=== PATIENT | male | born 1955 | race Two or more races ===

== ENCOUNTER 2018-01-14 10:02 | Emergency (ER) | payer MEDICAID, OTHER ==
[~2018-01-14] VITALS: Ht 185.4 cm; Wt 102.0 kg
[~2018-01-14 10:02] MED LIST: CARV3.122 PO
[2018-01-14 10:14] VITALS: BP 132/83
[2018-01-14] MEDS ORDERED: BACDS PO (11:08)
== END 2018-01-14 11:13 | disposition home or self-care (01) ==
LOC: ER 10:03
DX: S31.104A Unspecified open wound of abdominal wall, left lower quadrant without penetration into peritoneal cavity, initial encounter (principal); L03.311 Cellulitis of abdominal wall; I25.10 Atherosclerotic heart disease of native coronary artery without angina pectoris; I10 Essential (primary) hypertension; B18.2 Chronic viral hepatitis C; F10.10 Alcohol abuse, uncomplicated; F12.90 Cannabis use, unspecified, uncomplicated; Z86.14 Personal history of Methicillin resistant Staphylococcus aureus infection; Z59.0 Homelessness; X58.XXXA Exposure to other specified factors, initial encounter; Y93.89 Activity, other specified; Y92.89 Other specified places as the place of occurrence of the external cause; Y99.8 Other external cause status
CPT/HCPCS: 99283

== ENCOUNTER 2018-04-20 16:37 | Inpatient (IN) | payer MEDICAID, OTHER | END 2018-04-24 14:59 | disposition home or self-care (01) | LOC: SUR 3N 04-21 00:07 → ER 16:37 → ED HOLD 23:19 | DX: A41.9 Sepsis, unspecified organism (principal); J18.1 Lobar pneumonia, unspecified organism; Z59.0 Homelessness; E87.6 Hypokalemia; H54.8 Legal blindness, as defined in USA ==

== ENCOUNTER 2018-07-02 19:45 | Emergency (ER) | payer MEDICAID, OTHER ==
[~2018-07-02] VITALS: Ht 185.4 cm; Wt 81.8 kg
--- NOTE | 2018-07-02 19:55 | NUR ---
patient placed in c-collar c/o c-spine tenderness
[2018-07-02] MEDS ORDERED: HYDROcodone/acetaminophen 5mg/325mg tablet PO ONE (21:10)
[2018-07-02] MEDS ORDERED: ketorolac trometh inj. 60 MG/2 ML VIAL IM ONE (21:10)
[2018-07-02 22:25] VITALS: BP 121/69
[2018-07-02] MEDS ORDERED: MELO7.5T12 PO (23:07)
--- NOTE | 2018-07-02 23:46 | NUR ---
patient states " [facility] and [facility]." patient was cabbed on [facility] bill to [facility]
== END 2018-07-02 23:57 | disposition home or self-care (01) ==
LOC: ER 19:45
DX: M50.322 Other cervical disc degeneration at C5-C6 level (principal); I25.10 Atherosclerotic heart disease of native coronary artery without angina pectoris; I10 Essential (primary) hypertension; F17.200 Nicotine dependence, unspecified, uncomplicated; F12.90 Cannabis use, unspecified, uncomplicated; Z59.0 Homelessness; Z98.890 Other specified postprocedural states
CPT/HCPCS: 72125; 96372; 99284; J1885

== ENCOUNTER 2018-07-03 00:49 | Emergency (ER) | payer MEDICAID ==
[~2018-07-03] VITALS: Ht 185.4 cm; Wt 81.8 kg
[~2018-07-03 00:49] MED LIST changes: +MELO7.5T12 PO
[2018-07-03 00:57] VITALS: BP 117/70
== END 2018-07-03 01:38 | disposition home or self-care (01) ==
LOC: ER 00:51
DX: M54.2 Cervicalgia (principal); H54.8 Legal blindness, as defined in USA; I25.10 Atherosclerotic heart disease of native coronary artery without angina pectoris; I10 Essential (primary) hypertension; G89.29 Other chronic pain; F12.90 Cannabis use, unspecified, uncomplicated; Z86.19 Personal history of other infectious and parasitic diseases; Z86.14 Personal history of Methicillin resistant Staphylococcus aureus infection; Z98.890 Other specified postprocedural states; Z59.0 Homelessness; Z79.899 Other long term (current) drug therapy
CPT/HCPCS: 99283

== ENCOUNTER 2018-07-15 02:31 | Emergency (ER) | payer MEDICAID ==
[~2018-07-15] VITALS: Ht 185.4 cm; Wt 78.0 kg
[2018-07-15] MEDS ORDERED: ketorolac trometh inj. 60 MG/2 ML VIAL IM ONE (03:40)
[2018-07-15 03:58] VITALS: BP 123/82
== END 2018-07-15 04:00 | disposition home or self-care (01) ==
LOC: ER 02:32
DX: M54.5 Low back pain (principal); F12.90 Cannabis use, unspecified, uncomplicated; I25.10 Atherosclerotic heart disease of native coronary artery without angina pectoris; I10 Essential (primary) hypertension; G89.29 Other chronic pain; Z86.14 Personal history of Methicillin resistant Staphylococcus aureus infection; Z98.890 Other specified postprocedural states; Z79.899 Other long term (current) drug therapy; W16.42XA Fall into unspecified water causing other injury, initial encounter; Y93.89 Activity, other specified; Y92.89 Other specified places as the place of occurrence of the external cause; Y99.8 Other external cause status
CPT/HCPCS: 72100; 96372; 99284; J1885

== ENCOUNTER 2018-08-04 08:59 | Inpatient (IN) | payer MEDICAID ==
[~2018-08-04] VITALS: Ht 182.9 cm; Wt 90.9 kg
[2018-08-04] MEDS ORDERED: CefTRIAXone 2gm/D5W 50ml 50 ML IV ONE (09:45)
--- NOTE | 2018-08-04 09:59 | NUR ---
pt refuses to keep monitors on
[2018-08-04 10:03] LABS: BASOPHILS # (AUTO) 0.1 X10'3 (0-0.2); BASOPHILS % (AUTO) 0.4 % (0-1); EOSINOPHILS # (AUTO) 0.2 X10'3 (0-0.9); LYMPHOCYTES % (AUTO) 3.9 % (21-51)
[2018-08-04 10:04] LABS: HEMATOCRIT 44.8 % (42.0-52.0); HEMOGLOBIN 15.1 g/dl (14.0-17.9); LYMPHOCYTES # (AUTO) 0.7 X10'3 (1.1-4.8); MEAN CORPUSCULAR HEMOGLOBIN 32.6 PG (27.0-31.0); MEAN CORPUSCULAR HGB CONC 33.7 g/dL (33.0-36.5); MEAN PLATELET VOLUME 8.8 FL (7.4-10.4); MONOCYTES # (AUTO) 1.1 X10'3 (0-0.9); MONOCYTES % (AUTO) 5.9 % (2-12); NEUTROPHILS # (AUTO) 16.8 X10'3 (1.8-7.7); NEUTROPHILS % (AUTO) 88.8 % (42-75); PLATELET COUNT 239 X10'3 (140-440); RED BLOOD COUNT 4.62 X10'6 (4.70-6.10); RED CELL DISTRIBUTION WIDTH 13.6 % (11.5-14.5)
[2018-08-04 10:20] LABS: ALANINE AMINOTRANSFERASE 26 U/L (12-78); ALBUMIN 3.8 G/DL (3.4-5.0); ALBUMIN/GLOBULIN RATIO 1.1 (1.1-1.5); ALKALINE PHOSPHATASE 67 IU/L (46-116); ANION GAP 7 (8-16); ASPARTATE AMINO TRANSFERASE 39 U/L (10-37); BLOOD UREA NITROGEN 17 MG/DL (7-18); CALCIUM 8.4 MG/DL (8.5-10.1); CHLORIDE 102 MMOL/L (99-107); CREATININE 0.68 MG/DL (0.60-1.10); GLUCOSE 78 MG/DL (70-104); POTASSIUM 3.4 MMOL/L (3.5-5.1); SODIUM 136 MMOL/L (135-145); TOTAL CARBON DIOXIDE 27.5 MMOL/L (24-32); TOTAL PROTEIN 7.2 G/DL (6.4-8.2); eGFR > 90 ML/MIN
--- NOTE | 2018-08-04 11:04 | NUR ---
PT TAKES NO HOME RX
[2018-08-04] MEDS ORDERED: potassium CL 10mEq/100ml bag 100 ML IV PRN (11:15)
[2018-08-04] MEDS ORDERED: HYDROcodone/acetaminophen 5mg/325mg tablet PO PRN (11:15)
[2018-08-04] MEDS ORDERED: acetaminophen 325mg tablet PO PRN (11:15)
[2018-08-04] MEDS ORDERED: potassium Cl 20 mEq SR tablet PO PRN ×2 (11:15)
[2018-08-04] MEDS ORDERED: magnesium 4gm in 100ml NS 100 ML IV PRN (11:15)
[2018-08-04] MEDS ORDERED: HYDROcodone/acetaminophen 10/325mg tab PO PRN (11:15)
[2018-08-04] MEDS ORDERED: morphine 2 MG/ML inj. syringe IV PRN ×2 (11:15)
[2018-08-04] MEDS ORDERED: mag hydrox/Alum hydrox/simeth 30ml oral suspension PO PRN (11:15)
[2018-08-04] MEDS ORDERED: potassium Cl 40MEQ/NS 500ml 500 ML IV PRN (11:15)
[2018-08-04] MEDS ORDERED: magnesium 2GM in 50ml NS 50 ML IV PRN (11:15)
[2018-08-04] MEDS ORDERED: ondansetron/PF 4mg/2ml inj IV PRN (11:15)
[2018-08-04] MEDS ORDERED: magnesium Cl slow-release 64mg tablet PO PRN (11:15)
[2018-08-04] MEDS ORDERED: magnesium hydroxide 30ml (MOM) UD suspension PO PRN (11:15)
--- NOTE | 2018-08-04 11:46 | NUR ---
gave pt sandwich and apple juice and urinal
[2018-08-04] MEDS ORDERED: NO HOME MEDS (12:13)
[2018-08-04 14:28] VITALS: BP 143/81
[2018-08-04 18:00] VITALS: BP 130/73
[2018-08-04] MEDS: lactobacillus rhamnosus 10,000 MMU CELLS/CAPSULE PO SCH (19:57)
[2018-08-04] MEDS: famotidine 20mg tablet PO SCH (19:57)
[2018-08-04 22:00] VITALS: BP 141/72
--- NOTE | 2018-08-05 06:31 | NUR ---
Report given to anali Mondragon.
[2018-08-05 06:37] LABS: BASOPHILS # (AUTO) 0.1 X10'3 (0-0.2); BASOPHILS % (AUTO) 0.4 % (0-1); EOSINOPHILS # (AUTO) 0.1 X10'3 (0-0.9); EOSINOPHILS % (AUTO) 0.6 % (0-6); HEMATOCRIT 43.6 % (42.0-52.0); HEMOGLOBIN 14.7 g/dl (14.0-17.9); LYMPHOCYTES # (AUTO) 1.1 X10'3 (1.1-4.8); LYMPHOCYTES % (AUTO) 7.7 % (21-51); MEAN CORPUSCULAR HEMOGLOBIN 32.4 PG (27.0-31.0); MEAN CORPUSCULAR HGB CONC 33.7 g/dL (33.0-36.5); MEAN CORPUSCULAR VOLUME 96.1 FL (78-98); MEAN PLATELET VOLUME 8.8 FL (7.4-10.4); MONOCYTES % (AUTO) 7.4 % (2-12); NEUTROPHILS # (AUTO) 11.5 X10'3 (1.8-7.7); NEUTROPHILS % (AUTO) 83.9 % (42-75); PLATELET COUNT 196 X10'3 (140-440); RED BLOOD COUNT 4.54 X10'6 (4.70-6.10); RED CELL DISTRIBUTION WIDTH 13.6 % (11.5-14.5); WHITE BLOOD COUNT 13.7 X10'3 (4.5-11.0)
[2018-08-05 06:46] LABS: ANION GAP 6 (8-16); BLOOD UREA NITROGEN 10 MG/DL (7-18); BUN/CREATININE RATIO 17.9 (5.4-32.0); CALCIUM 8.6 MG/DL (8.5-10.1); CHLORIDE 104 MMOL/L (99-107); CREATININE 0.56 MG/DL (0.60-1.10); GLUCOSE 94 MG/DL (70-104); MAGNESIUM 1.9 MG/DL (1.5-2.4); POTASSIUM 3.7 MMOL/L (3.5-5.1); SODIUM 136 MMOL/L (135-145); TOTAL CARBON DIOXIDE 26.3 MMOL/L (24-32); eGFR > 90 ML/MIN
--- NOTE | 2018-08-05 06:59 | NUR ---
Patient in room ORTHO 4013. I have received report from CAROLYNE Johns and had the opportunity to ask questions and assume patient care.
[2018-08-05] MEDS ORDERED: furosemide 20 MG/2 ML vial IV SCH (08:00)
[2018-08-05] MEDS: K and/or MAG REPLACEMENT MC SCH (08:00)
[2018-08-05] MEDS: lactobacillus rhamnosus 10,000 MMU CELLS/CAPSULE PO SCH ×2 (09:41→20:21)
[2018-08-05] MEDS: ibuprofen 200mg tablet PO SCH ×3 (09:42→17:51)
[2018-08-05] MEDS: famotidine 20mg tablet PO SCH ×2 (09:42→20:21)
[2018-08-05] MEDS: aspirin 81mg tablet.DR PO SCH (09:42)
[2018-08-05] MEDS: enoxaparin 40mg/0.4ml syringe SQ SCH (09:43)
[2018-08-05] MEDS: CefTRIAXone 2gm/D5W 50ml 50 ML IV SCH (09:56)
[2018-08-05 18:00] VITALS: BP 131/87
[2018-08-05 22:00] VITALS: BP 126/76
[2018-08-06 06:00] VITALS: BP 132/83
[2018-08-06 06:01] LABS: BASOPHILS # (AUTO) 0.1 X10'3 (0-0.2); BASOPHILS % (AUTO) 0.6 % (0-1); EOSINOPHILS # (AUTO) 0.4 X10'3 (0-0.9); EOSINOPHILS % (AUTO) 4.2 % (0-6); HEMATOCRIT 43.3 % (42.0-52.0); HEMOGLOBIN 14.4 g/dl (14.0-17.9); LYMPHOCYTES # (AUTO) 1.4 X10'3 (1.1-4.8); LYMPHOCYTES % (AUTO) 14.7 % (21-51); MEAN CORPUSCULAR HEMOGLOBIN 32.3 PG (27.0-31.0); MEAN CORPUSCULAR HGB CONC 33.3 g/dL (33.0-36.5); MEAN PLATELET VOLUME 9.1 FL (7.4-10.4); MONOCYTES # (AUTO) 1.1 X10'3 (0-0.9); MONOCYTES % (AUTO) 11.6 % (2-12); NEUTROPHILS # (AUTO) 6.5 X10'3 (1.8-7.7); NEUTROPHILS % (AUTO) 68.9 % (42-75); PLATELET COUNT 202 X10'3 (140-440); RED BLOOD COUNT 4.46 X10'6 (4.70-6.10); RED CELL DISTRIBUTION WIDTH 13.8 % (11.5-14.5); WHITE BLOOD COUNT 9.4 X10'3 (4.5-11.0)
[2018-08-06 06:29] LABS: ALBUMIN 2.9 G/DL (3.4-5.0); ANION GAP 9 (8-16); BLOOD UREA NITROGEN 18 MG/DL (7-18); CALCIUM 8.3 MG/DL (8.5-10.1); CHLORIDE 102 MMOL/L (99-107); CREATININE 0.58 MG/DL (0.60-1.10); GLUCOSE 86 MG/DL (70-104); MAGNESIUM 1.8 MG/DL (1.5-2.4); POTASSIUM 3.7 MMOL/L (3.5-5.1); SODIUM 137 MMOL/L (135-145); TOTAL CARBON DIOXIDE 25.8 MMOL/L (24-32); eGFR > 90 ML/MIN
--- NOTE | 2018-08-06 06:43 | NUR ---
report given to anali Xavier.
--- NOTE | 2018-08-06 06:45 | NUR ---
Patient in room ORTHO 4013. I have received report from CAROLYNE Johns and had the opportunity to ask questions and assume patient care.
[2018-08-06] MEDS: K and/or MAG REPLACEMENT MC SCH (08:00)
[2018-08-06] MEDS: aspirin 81mg tablet.DR PO SCH (09:12)
[2018-08-06] MEDS: famotidine 20mg tablet PO SCH ×2 (09:12→19:36)
[2018-08-06] MEDS: enoxaparin 40mg/0.4ml syringe SQ SCH (09:12)
[2018-08-06] MEDS: lactobacillus rhamnosus 10,000 MMU CELLS/CAPSULE PO SCH ×2 (09:12→19:36)
[2018-08-06] MEDS: CefTRIAXone 2gm/D5W 50ml 50 ML IV SCH (09:13)
[2018-08-06] MEDS: ibuprofen 200mg tablet PO SCH ×3 (09:14→18:44)
[2018-08-06 10:00] VITALS: BP 125/80
--- NOTE | 2018-08-06 18:39 | NUR ---
Patient in room ORTHO 4013. I have received report from CAROLYNE WILEY and had the opportunity to ask questions and assume patient care.
--- NOTE | 2018-08-06 18:41 | NUR ---
Problems reprioritized. Patient report given, questions answered & plan of care reviewed with Radha Almeida RN.
--- NOTE | 2018-08-06 19:16 | NUR ---
PT ARRIVED ON THE FLOOR , AMBULATORY AND LEGALLY BLIND, NOT IN DISTRESS.
[2018-08-06 20:00] VITALS: BP 127/66
[2018-08-07] VITALS: BP 140/85
[2018-08-07 04:56] LABS: BASOPHILS # (AUTO) 0.1 X10'3 (0-0.2); BASOPHILS % (AUTO) 0.7 % (0-1); EOSINOPHILS # (AUTO) 0.6 X10'3 (0-0.9); EOSINOPHILS % (AUTO) 7.4 % (0-6); HEMATOCRIT 45.1 % (42.0-52.0); HEMOGLOBIN 15.5 g/dl (14.0-17.9); LYMPHOCYTES # (AUTO) 2.2 X10'3 (1.1-4.8); LYMPHOCYTES % (AUTO) 28.2 % (21-51); MEAN CORPUSCULAR HEMOGLOBIN 33.1 PG (27.0-31.0); MEAN CORPUSCULAR HGB CONC 34.5 g/dL (33.0-36.5); MEAN PLATELET VOLUME 9.1 FL (7.4-10.4); MONOCYTES # (AUTO) 1.1 X10'3 (0-0.9); MONOCYTES % (AUTO) 13.8 % (2-12); NEUTROPHILS # (AUTO) 3.8 X10'3 (1.8-7.7); NEUTROPHILS % (AUTO) 49.9 % (42-75); PLATELET COUNT 229 X10'3 (140-440); RED CELL DISTRIBUTION WIDTH 13.3 % (11.5-14.5); WHITE BLOOD COUNT 7.7 X10'3 (4.5-11.0)
[2018-08-07 05:09] LABS: ANION GAP 5 (8-16); BLOOD UREA NITROGEN 21 MG/DL (7-18); BUN/CREATININE RATIO 27.3 (5.4-32.0); CHLORIDE 105 MMOL/L (99-107); CREATININE 0.77 MG/DL (0.60-1.10); GLUCOSE 95 MG/DL (70-104); POTASSIUM 4.1 MMOL/L (3.5-5.1); SODIUM 140 MMOL/L (135-145); TOTAL CARBON DIOXIDE 30.3 MMOL/L (24-32); eGFR > 90 ML/MIN
--- NOTE | 2018-08-07 06:30 | NUR ---
Patient in room ALLISON 349. I have received report from Radha Dalal RN and had the opportunity to ask questions and assume patient care.
--- NOTE | 2018-08-07 06:35 | NUR ---
Problems reprioritized. Patient report given, questions answered & plan of care reviewed with CAROLYNE Bone. Addendum: 08/07/18 at 0636 by Meghan Foreman RN Amended: Links added.
[2018-08-07 08:00] VITALS: BP 139/80
[2018-08-07] MEDS: K and/or MAG REPLACEMENT MC SCH (08:00)
[2018-08-07] MEDS: aspirin 81mg tablet.DR PO SCH (08:42)
[2018-08-07] MEDS: lactobacillus rhamnosus 10,000 MMU CELLS/CAPSULE PO SCH (08:42)
[2018-08-07] MEDS: famotidine 20mg tablet PO SCH (08:42)
[2018-08-07] MEDS: CefTRIAXone 2gm/D5W 50ml 50 ML IV SCH (08:43)
[2018-08-07] MEDS: ibuprofen 200mg tablet PO SCH ×2 (08:43→12:51)
[2018-08-07] MEDS: enoxaparin 40mg/0.4ml syringe SQ SCH (08:46)
[2018-08-07 11:00] VITALS: BP 119/81
[2018-08-07] MEDS ORDERED: CEFD300C3 PO (17:25)
[2018-08-07] MEDS ORDERED: IBUP-1594 PO (17:25)
[2018-08-07] MEDS ORDERED: ASPI-1071 PO (17:25)
--- NOTE | 2018-08-07 18:30 | NUR ---
Patient discharged and verbally understands follow up for back pain at [facility] and primary for referral. Patient discharged with new meds to be picked up at [facility]. Patient is discharge with understanding of new mediation regime and is going to be going to the [facility] with arcelia passes, clothes, sack lunch, and cab fair to [facility]. Patient IV removed at time of discharge teaching.
== END 2018-08-07 19:05 | disposition home or self-care (01) | DRG 383 ==
LOC: ER 09:01 → ORTHO 4S 11:31 → INTOOBSV 14:29 → UNDOADMOB 14:29 → OBSVTOIN 14:29 → CMPBEDREQ 08-05 19:44 → SUR 3N 08-06 19:03
PROVIDERS: ADMIT Hospitalist; ATTEND Hospitalist
DX: L03.116 Cellulitis of left lower limb (principal); M48.54XA Collapsed vertebra, not elsewhere classified, thoracic region, initial encounter for fracture; G89.4 Chronic pain syndrome; H54.7 Unspecified visual loss; I10 Essential (primary) hypertension; M54.9 Dorsalgia, unspecified; F10.10 Alcohol abuse, uncomplicated; W18.39XA Other fall on same level, initial encounter; I25.10 Atherosclerotic heart disease of native coronary artery without angina pectoris; B19.20 Unspecified viral hepatitis C without hepatic coma; F12.90 Cannabis use, unspecified, uncomplicated; Z59.0 Homelessness; Z86.14 Personal history of Methicillin resistant Staphylococcus aureus infection; Y93.89 Activity, other specified; Y92.89 Other specified places as the place of occurrence of the external cause; Y99.8 Other external cause status
CPT/HCPCS: 36415; 72146; 72148; 80048; 80053; 83735; 84145; 85025; 87070; 93971; 96365; 97161; 97530; 99285; G0378; J0696; J1650; J1940

== ENCOUNTER 2018-09-29 17:37 | Emergency (ER) | payer MEDICAID ==
[~2018-09-29] VITALS: Ht 188 cm; Wt 81.8 kg
[~2018-09-29 17:37] MED LIST changes: +ASPI-1071 PO; -CARV3.122 PO; +IBUP-1594 PO; -MELO7.5T12 PO; +NO HOME MEDS
--- NOTE | 2018-09-29 19:15 | NUR ---
PT WITH POCKET KNIFE SECUITY CALLED FOR THE KNIFE TO BE LOCKED UP PT AWARE AND COROPORATIVE
--- NOTE | 2018-09-29 19:34 | NUR ---
PT BEING A SMART ALLIK WHEN I BROUGHT HIM BACK TO A ROOM STATEMENTS "ALL I NEED IS A DAMN XRAY." "I'LL DROP MY PANTS WHEN THE DOCTOR COMES IN HERE, I AIN'T PUTTING THAT DAMN GOWN ON." PT INFOMED HE KEEPS UP THE ATTITUDE HE CAN DEPART.
[2018-09-29] MEDS ORDERED: ibuprofen tablet 400 MG TABLET PO ONE (20:20)
[2018-09-29] MEDS ORDERED: ACET-3068 PO (20:20)
[2018-09-29] MEDS ORDERED: HYDROcodone/acetaminophen 5mg/325mg tablet PO ONE (20:20)
--- NOTE | 2018-09-29 20:48 | NUR ---
[facility] ICE PACK GIVEN PER MD MORENO.
--- NOTE | 2018-09-29 21:00 | NUR ---
ICE PACKS GIVEN TO PATIENT / [facility] / [facility] CALLED FOR D/C TRANSPORTION
[2018-09-29 21:14] VITALS: BP 159/85
== END 2018-09-29 21:15 | disposition home or self-care (01) ==
LOC: ER 17:37
DX: S30.0XXA Contusion of lower back and pelvis, initial encounter (principal); M25.552 Pain in left hip; I25.10 Atherosclerotic heart disease of native coronary artery without angina pectoris; I10 Essential (primary) hypertension; G89.29 Other chronic pain; F12.90 Cannabis use, unspecified, uncomplicated; Z59.0 Homelessness; Z98.890 Other specified postprocedural states; Z79.82 Long term (current) use of aspirin; Z79.899 Other long term (current) drug therapy; W18.49XA Other slipping, tripping and stumbling without falling, initial encounter; Y93.89 Activity, other specified; Y92.89 Other specified places as the place of occurrence of the external cause; Y99.9 Unspecified external cause status
CPT/HCPCS: 73502; 99284

== ENCOUNTER 2018-10-09 13:52 | Emergency (ER) | payer MEDICAID ==
[~2018-10-09] VITALS: Ht 185.4 cm; Wt 77.3 kg
[~2018-10-09 13:52] MED LIST changes: +ACET-3068 PO
[2018-10-09] MEDS ORDERED: DOXYCYCLINE 100MG CAPSULE PO STA (14:38)
[2018-10-09] MEDS ORDERED: DOXY100C43 PO (14:43)
[2018-10-09 14:52] VITALS: BP 148/90
== END 2018-10-09 14:59 | disposition home or self-care (01) ==
LOC: ER 13:54
DX: L03.115 Cellulitis of right lower limb (principal); I25.10 Atherosclerotic heart disease of native coronary artery without angina pectoris; I10 Essential (primary) hypertension; G89.29 Other chronic pain; F12.90 Cannabis use, unspecified, uncomplicated; Z59.0 Homelessness; Z98.890 Other specified postprocedural states; Z86.14 Personal history of Methicillin resistant Staphylococcus aureus infection; Z79.82 Long term (current) use of aspirin
CPT/HCPCS: 99283

== ENCOUNTER 2018-11-13 04:13 | Emergency (ER) | payer MEDICAID ==
[~2018-11-13 04:13] MED LIST changes: -ACET-3068 PO
--- NOTE | 2018-11-13 04:20 | NUR ---
Patient was also offered EKG which he refused prior to leaving.
--- NOTE | 2018-11-13 04:20 | NUR ---
Patient was found sitting in the lobby with his dog for an extended period of time without checking in. Security was called by registration. When security arrived, the patient stated that he had chest pain. Security noticed the patient had bugs crawling all over him and falling out of his clothing. The patient was told that his dog could not come into the hospital with him and that he would need to be showered and treated prior to coming into the ED. The patient became aggressive stating that he was being discriminated against for being homeless. I explained to him that we would be happy to treat him, but that non-service animals are not allowed in the hospital. He yelled, "fine! give me a gun then! I'll just shoot him! Is that what you want?" I attempted to verbally de-escalate the patient which was unsuccessful. He began yelling, "see! I'm walking! Do you see me? I'm walking!" and walked off hospital premesis.
== END 2018-11-13 04:27 | disposition home or self-care (01) ==
LOC: ER 04:14
DX: Z00.8 Encounter for other general examination (principal); Z53.21 Procedure and treatment not carried out due to patient leaving prior to being seen by health care provider

== ENCOUNTER 2018-12-28 13:16 | Emergency (ER) | payer MEDICAID ==
[~2018-12-28] VITALS: Ht 185.4 cm; Wt 77.0 kg
[2018-12-28 13:22] VITALS: BP 131/91
[2018-12-28] MEDS ORDERED: LIDOcaine 4% (40 mg/ml) topical solution 50ml TP ONE (13:30)
[2018-12-28] MEDS ORDERED: ibuprofen 200mg tablet PO ONE (13:45)
--- NOTE | 2018-12-28 13:55 | NUR ---
scrap cutter is completing ortho orders to apply the right shoulder immobilizer.
== END 2018-12-28 14:04 | disposition home or self-care (01) ==
LOC: ER 13:17
DX: S40.011A Contusion of right shoulder, initial encounter (principal); I25.10 Atherosclerotic heart disease of native coronary artery without angina pectoris; I10 Essential (primary) hypertension; G89.29 Other chronic pain; F17.200 Nicotine dependence, unspecified, uncomplicated; Z98.890 Other specified postprocedural states; Z59.0 Homelessness; Z86.14 Personal history of Methicillin resistant Staphylococcus aureus infection; Z79.82 Long term (current) use of aspirin; W18.30XA Fall on same level, unspecified, initial encounter; Y93.89 Activity, other specified; Y92.89 Other specified places as the place of occurrence of the external cause; Y99.9 Unspecified external cause status
CPT/HCPCS: 29105; 73030; 99284

== ENCOUNTER 2019-02-14 14:07 | Inpatient (IN) | payer MEDICAID ==
[~2019-02-14] VITALS: Ht 188 cm; Wt 90.0 kg
[2019-02-14] MEDS ORDERED: acetaminophen 325mg tablet PO STA (16:41)
[2019-02-14] MEDS ORDERED: normal saline 1000ML IV soln IV ONE (16:45)
--- NOTE | 2019-02-14 17:11 | NUR ---
ASSISTING RN WITH PT CARE, 1ST LITER NS INFUSING W/O, GAS BRAZER AT BEDSIDE
[2019-02-14 17:41] LABS: BASOPHILS % (AUTO) 0.2 % (0-1); EOSINOPHILS % (AUTO) 0 % (0-6); HEMATOCRIT 46.6 % (42.0-52.0); HEMOGLOBIN 15.5 g/dl (14.0-17.9); LYMPHOCYTES # (AUTO) 0.6 X10'3 (1.1-4.8); LYMPHOCYTES % (AUTO) 2.5 % (21-51); MEAN CORPUSCULAR HGB CONC 33.4 g/dL (33.0-36.5); MEAN PLATELET VOLUME 8.3 FL (7.4-10.4); MONOCYTES # (AUTO) 0.8 X10'3 (0-0.9); MONOCYTES % (AUTO) 3.4 % (2-12); NEUTROPHILS # (AUTO) 22.2 X10'3 (1.8-7.7); NEUTROPHILS % (AUTO) 93.9 % (42-75); PLATELET COUNT 269 X10'3 (140-440); RED BLOOD COUNT 4.85 X10'6 (4.70-6.10); RED CELL DISTRIBUTION WIDTH 13.7 % (11.5-14.5); WHITE BLOOD COUNT 23.7 X10'3 (4.5-11.0)
[2019-02-14 17:48] LABS: ALANINE AMINOTRANSFERASE 20 U/L (12-78); ALBUMIN 3.6 G/DL (3.4-5.0); ALKALINE PHOSPHATASE 62 IU/L (46-116); ANION GAP 9 (8-16); ASPARTATE AMINO TRANSFERASE 17 U/L (10-37); BILIRUBIN,TOTAL 0.9 MG/DL (0.1-1.0); BLOOD UREA NITROGEN 17 MG/DL (7-18); BUN/CREATININE RATIO 17.3 (5.4-32.0); CALCIUM 8.6 MG/DL (8.5-10.1); CHLORIDE 98 MMOL/L (99-107); CREATININE 0.98 MG/DL (0.60-1.10); GLUCOSE 138 MG/DL (70-104); SODIUM 134 MMOL/L (135-145); TOTAL CARBON DIOXIDE 26.9 MMOL/L (24-32); TOTAL PROTEIN 7.1 G/DL (6.4-8.2); eGFR 78 ML/MIN
[2019-02-14] MEDS ORDERED: vancomycin/NS 1 GM ADD-VANTAGE 250 ML IV ONE (17:55)
[2019-02-14] MEDS ORDERED: normal saline 1000ml 1,000 ML IV ONE (17:57)
[2019-02-14] MEDS ORDERED: VANCOMYCIN 1gm/H2O 200ml PB 200 ML IV ONE (18:02)
[2019-02-14] MEDS: VANCOMYCIN 1gm/H2O 200ml PB 200 ML IV SCH ×2 (19:35→19:51)
[2019-02-14] MEDS ORDERED: NO HOME MEDS (20:15)
[2019-02-14] MEDS ORDERED: potassium CL 10mEq/100ml bag 100 ML IV PRN ×2 (22:15)
[2019-02-14] MEDS ORDERED: acetaminophen 325mg tablet PO PRN (22:15)
[2019-02-14] MEDS ORDERED: ondansetron/PF 4mg/2ml inj IV PRN (22:15)
[2019-02-14] MEDS ORDERED: mag hydrox/Alum hydrox/simeth 30ml oral suspension PO PRN (22:15)
[2019-02-14] MEDS ORDERED: magnesium Cl slow-release 64mg tablet PO PRN (22:15)
[2019-02-14] MEDS ORDERED: magnesium 2GM in 50ml NS 50 ML IV PRN (22:15)
[2019-02-14] MEDS ORDERED: magnesium 4gm in 100ml NS 100 ML IV PRN (22:15)
[2019-02-14] MEDS ORDERED: potassium Cl 20 mEq SR tablet PO PRN (22:15)
[2019-02-14] MEDS ORDERED: magnesium hydroxide 30ml (MOM) UD suspension PO PRN (22:15)
[2019-02-14] MEDS ORDERED: CefTRIAXone/D5W-Rocephin 1gm 50 ML IV ONE (22:15)
[2019-02-14 22:27] LABS: CLARITY,URINE CLEAR (Clear); COLOR,URINE YELLOW (Yellow); GLUCOSE, URINE NEGATIVE (Neg); KETONES,URINE NEGATIVE (Neg); LEUKOCYTE ESTERASE ,URINE NEGATIVE (Neg); NITRITES, URINE NEGATIVE (Neg); OCCULT BLOOD,URINE TRACE-INTACT (Neg); PROTEIN,URINE NEGATIVE (Neg); UROBILINOGEN,URINE 0.2 E.U/dL (0.2-1.0)
[2019-02-14 22:28] LABS: UA COLLECTION TYPE URINAL
[2019-02-14 22:39] LABS: BACTERIA,URINE NONE SEEN /HPF (Neg); MUCUS STRANDS MANY /LPF (Neg); RBC,URINE 0-2 /HPF (0-2); SQUAMOUS EPITHELIAL CELL,UR FEW /LPF (FEW); WBC,URINE 0-4 /HPF (0-4)
[2019-02-14] MEDS: normal saline 1000ml 1,000 ML IV SCH (22:45)
--- NOTE | 2019-02-14 22:45 | NUR ---
Received report from Nathaniel BARFIELD in ED. assumed care of patient.
[2019-02-14 23:00] VITALS: BP 108/56
[2019-02-15] MEDS: clindamycin 300mg/D5W 50mL 50 ML IV SCH ×3 (02:22→16:03)
[2019-02-15] MEDS: HYDROcodone/acetaminophen 10/325mg tab PO PRN ×2 (04:51→19:10)
[2019-02-15 06:00] VITALS: BP 106/57
[2019-02-15 06:23] LABS: BASOPHILS # (AUTO) 0.1 X10'3 (0-0.2); BASOPHILS % (AUTO) 0.3 % (0-1); EOSINOPHILS % (AUTO) 0.1 % (0-6); HEMATOCRIT 38.8 % (42.0-52.0); HEMOGLOBIN 13.2 g/dl (14.0-17.9); LYMPHOCYTES # (AUTO) 0.8 X10'3 (1.1-4.8); LYMPHOCYTES % (AUTO) 4.7 % (21-51); MEAN CORPUSCULAR HEMOGLOBIN 32.6 PG (27.0-31.0); MEAN CORPUSCULAR VOLUME 95.7 FL (78-98); MEAN PLATELET VOLUME 8.8 FL (7.4-10.4); MONOCYTES # (AUTO) 0.6 X10'3 (0-0.9); MONOCYTES % (AUTO) 3.6 % (2-12); NEUTROPHILS # (AUTO) 16.1 X10'3 (1.8-7.7); NEUTROPHILS % (AUTO) 91.3 % (42-75); PLATELET COUNT 235 X10'3 (140-440); RED BLOOD COUNT 4.05 X10'6 (4.70-6.10); RED CELL DISTRIBUTION WIDTH 13.3 % (11.5-14.5); WHITE BLOOD COUNT 17.7 X10'3 (4.5-11.0)
[2019-02-15 06:24] LABS: ALANINE AMINOTRANSFERASE 14 U/L (12-78); ALBUMIN 2.8 G/DL (3.4-5.0); ALBUMIN/GLOBULIN RATIO 0.9 (1.1-1.5); ALKALINE PHOSPHATASE 48 IU/L (46-116); ANION GAP 8 (8-16); ASPARTATE AMINO TRANSFERASE 14 U/L (10-37); BILIRUBIN,TOTAL 0.7 MG/DL (0.1-1.0); BLOOD UREA NITROGEN 14 MG/DL (7-18); CHLORIDE 102 MMOL/L (99-107); GLUCOSE 170 MG/DL (70-104); MAGNESIUM 1.7 MG/DL (1.5-2.4); POTASSIUM 3.7 MMOL/L (3.5-5.1); SODIUM 134 MMOL/L (135-145); TOTAL CARBON DIOXIDE 24.3 MMOL/L (24-32); TOTAL PROTEIN 5.9 G/DL (6.4-8.2); eGFR 76 ML/MIN
--- NOTE | 2019-02-15 06:50 | NUR ---
Gave report to Oly BARFIELD.
[2019-02-15] MEDS: K and/or MAG REPLACEMENT MC SCH ×2 (08:00→19:11)
[2019-02-15] MEDS: normal saline 1000ml 1,000 ML IV SCH ×2 (08:11→18:11)
[2019-02-15] MEDS: heparin, porcine 5000 units/ml vial SQ SCH ×2 (08:23→19:10)
[2019-02-15] MEDS: CefTRIAXone/D5W-Rocephin 1gm 50 ML IV SCH (08:23)
[2019-02-15 10:45] VITALS: BP 93/60
--- NOTE | 2019-02-15 17:01 | NUR ---
PAGER ID: [phone] MESSAGE: [id number] Rebecca do you want to order PT? [id number] Oly
--- NOTE | 2019-02-15 17:50 | NUR ---
Dr Wesley at bedside
[2019-02-15 18:00] VITALS: BP 123/65
--- NOTE | 2019-02-15 18:10 | NUR ---
Received report from Oly BARFIELD. assumed care of patient
[2019-02-15] MEDS ORDERED: VANCOmycin 1250MG/NS 250ml Bag 250 ML IV SCH (19:15)
[2019-02-15] MEDS ORDERED: VANCOmycin 1250MG/NS 250ml Bag 250 ML IV ONE (19:31)
[2019-02-15 22:00] VITALS: BP 114/71
[2019-02-16] MEDS: HYDROcodone/acetaminophen 10/325mg tab PO PRN ×3 (03:24→19:06)
[2019-02-16] MEDS: VANCOmycin 1250MG/NS 250ml Bag 250 ML IV SCH ×3 (03:25→19:59)
[2019-02-16 06:00] VITALS: BP 125/84
[2019-02-16 06:07] LABS: BASOPHILS % (AUTO) 0.2 % (0-1); EOSINOPHILS # (AUTO) 0.1 X10'3 (0-0.9); HEMATOCRIT 38.3 % (42.0-52.0); LYMPHOCYTES % (AUTO) 7.8 % (21-51); MEAN CORPUSCULAR HEMOGLOBIN 32.3 PG (27.0-31.0); MEAN CORPUSCULAR HGB CONC 34.1 g/dL (33.0-36.5); MEAN CORPUSCULAR VOLUME 94.8 FL (78-98); MEAN PLATELET VOLUME 8.7 FL (7.4-10.4); MONOCYTES # (AUTO) 1.1 X10'3 (0-0.9); MONOCYTES % (AUTO) 8.7 % (2-12); NEUTROPHILS # (AUTO) 10.8 X10'3 (1.8-7.7); NEUTROPHILS % (AUTO) 82.3 % (42-75); PLATELET COUNT 213 X10'3 (140-440); RED BLOOD COUNT 4.03 X10'6 (4.70-6.10); RED CELL DISTRIBUTION WIDTH 13.4 % (11.5-14.5); WHITE BLOOD COUNT 13.2 X10'3 (4.5-11.0)
[2019-02-16 06:22] LABS: ALBUMIN 2.6 G/DL (3.4-5.0); ANION GAP 4 (8-16); BLOOD UREA NITROGEN 11 MG/DL (7-18); BUN/CREATININE RATIO 14.1 (5.4-32.0); CALCIUM 8.1 MG/DL (8.5-10.1); CHLORIDE 104 MMOL/L (99-107); CREATININE 0.78 MG/DL (0.60-1.10); GLUCOSE 96 MG/DL (70-104); MAGNESIUM 1.8 MG/DL (1.5-2.4); POTASSIUM 3.4 MMOL/L (3.5-5.1); SODIUM 136 MMOL/L (135-145); TOTAL CARBON DIOXIDE 27.7 MMOL/L (24-32); eGFR > 90 ML/MIN
--- NOTE | 2019-02-16 06:33 | NUR ---
Gave report to Oly BARFIELD.
[2019-02-16] MEDS: K and/or MAG REPLACEMENT MC SCH ×2 (07:05→20:00)
[2019-02-16] MEDS: CefTRIAXone/D5W-Rocephin 1gm 50 ML IV SCH (09:08)
[2019-02-16] MEDS: heparin, porcine 5000 units/ml vial SQ SCH ×2 (09:14→19:07)
[2019-02-16 10:00] VITALS: BP 130/81
[2019-02-16 18:00] VITALS: BP 131/79
--- NOTE | 2019-02-16 18:23 | NUR ---
Report to Katie BARFIELD
--- NOTE | 2019-02-16 18:37 | NUR ---
Patient in room ORTHO 4016. I have received report from Oly and had the opportunity to ask questions and assume patient care.
[2019-02-16] MEDS: potassium Cl 20 mEq SR tablet PO PRN (19:05)
[2019-02-16 22:00] VITALS: BP 139/89
[2019-02-17] MEDS: potassium Cl 20 mEq SR tablet PO PRN (00:05)
[2019-02-17] MEDS: HYDROcodone/acetaminophen 10/325mg tab PO PRN ×2 (00:06→21:48)
[2019-02-17 03:30] LABS: BASOPHILS # (AUTO) 0.1 X10'3 (0-0.2); BASOPHILS % (AUTO) 0.9 % (0-1); EOSINOPHILS # (AUTO) 0.3 X10'3 (0-0.9); EOSINOPHILS % (AUTO) 3.1 % (0-6); HEMATOCRIT 38.7 % (42.0-52.0); HEMOGLOBIN 13.2 g/dl (14.0-17.9); LYMPHOCYTES # (AUTO) 1.3 X10'3 (1.1-4.8); LYMPHOCYTES % (AUTO) 15.3 % (21-51); MEAN CORPUSCULAR HEMOGLOBIN 32.2 PG (27.0-31.0); MEAN CORPUSCULAR VOLUME 94.7 FL (78-98); MEAN PLATELET VOLUME 8.5 FL (7.4-10.4); MONOCYTES # (AUTO) 0.9 X10'3 (0-0.9); NEUTROPHILS % (AUTO) 69.7 % (42-75); PLATELET COUNT 227 X10'3 (140-440); RED BLOOD COUNT 4.08 X10'6 (4.70-6.10); RED CELL DISTRIBUTION WIDTH 13.3 % (11.5-14.5); WHITE BLOOD COUNT 8.5 X10'3 (4.5-11.0)
[2019-02-17] MEDS ORDERED: VANCOMYCIN LEVEL IV ONE (03:30)
[2019-02-17 03:46] LABS: ALBUMIN 2.5 G/DL (3.4-5.0); ANION GAP 9 (8-16); BLOOD UREA NITROGEN 15 MG/DL (7-18); BUN/CREATININE RATIO 20.3 (5.4-32.0); CHLORIDE 105 MMOL/L (99-107); CREATININE 0.74 MG/DL (0.60-1.10); GLUCOSE 112 MG/DL (70-104); MAGNESIUM 1.8 MG/DL (1.5-2.4); POTASSIUM 3.5 MMOL/L (3.5-5.1); SODIUM 140 MMOL/L (135-145); TOTAL CARBON DIOXIDE 26.5 MMOL/L (24-32); VANCOMYCIN,TROUGH 10.5 UG/ML (6.0-14.0); eGFR > 90 ML/MIN
[2019-02-17] MEDS: VANCOmycin 1250MG/NS 250ml Bag 250 ML IV SCH (04:23)
[2019-02-17 06:00] VITALS: BP 127/80
--- NOTE | 2019-02-17 06:20 | NUR ---
Problems reprioritized. Patient report given, questions answered & plan of care reviewed with CAROLYNE Mondragon.
--- NOTE | 2019-02-17 06:30 | NUR ---
Patient in room ORTHO 4016. I have received report from CAROLYNE Wilson and had the opportunity to ask questions and assume patient care.
[2019-02-17] MEDS: K and/or MAG REPLACEMENT MC SCH ×2 (08:00→20:00)
[2019-02-17] MEDS: heparin, porcine 5000 units/ml vial SQ SCH ×2 (09:24→19:01)
[2019-02-17] MEDS: CefTRIAXone/D5W-Rocephin 1gm 50 ML IV SCH (09:25)
[2019-02-17 10:00] VITALS: BP 111/72
[2019-02-17 18:00] VITALS: BP 138/85
--- NOTE | 2019-02-17 18:11 | NUR ---
Problems reprioritized. Patient report given, questions answered & plan of care reviewed with CAROLYNE Rudolph.
--- NOTE | 2019-02-17 18:11 | NUR ---
Patient in room ORTHO 4016. I have received report from Alanna BARFIELD and had the opportunity to ask questions and assume patient care.
[2019-02-17 22:00] VITALS: BP 133/81
[2019-02-18] MEDS: HYDROcodone/acetaminophen 10/325mg tab PO PRN ×3 (03:51→21:27)
[2019-02-18 06:00] VITALS: BP 127/80
--- NOTE | 2019-02-18 06:20 | NUR ---
Problems reprioritized. Patient report given, questions answered & plan of care reviewed with Minerva BARFIELD.
--- NOTE | 2019-02-18 06:28 | NUR ---
Patient in room ORTHO 4016. I have received report from KARLA BARFIELD and had the opportunity to ask questions and assume patient care.
[2019-02-18] MEDS: CefTRIAXone/D5W-Rocephin 1gm 50 ML IV SCH (07:12)
[2019-02-18] MEDS: K and/or MAG REPLACEMENT MC SCH ×2 (08:00→18:58)
[2019-02-18 08:36] LABS: BASOPHILS # (AUTO) 0.1 X10'3 (0-0.2); BASOPHILS % (AUTO) 0.9 % (0-1); EOSINOPHILS # (AUTO) 0.5 X10'3 (0-0.9); HEMATOCRIT 43.9 % (42.0-52.0); HEMOGLOBIN 14.7 g/dl (14.0-17.9); LYMPHOCYTES # (AUTO) 1.2 X10'3 (1.1-4.8); LYMPHOCYTES % (AUTO) 17.6 % (21-51); MEAN CORPUSCULAR HEMOGLOBIN 32.1 PG (27.0-31.0); MEAN CORPUSCULAR HGB CONC 33.6 g/dL (33.0-36.5); MEAN CORPUSCULAR VOLUME 95.8 FL (78-98); MEAN PLATELET VOLUME 8.8 FL (7.4-10.4); MONOCYTES # (AUTO) 0.6 X10'3 (0-0.9); MONOCYTES % (AUTO) 9.7 % (2-12); NEUTROPHILS # (AUTO) 4.3 X10'3 (1.8-7.7); NEUTROPHILS % (AUTO) 64.8 % (42-75); PLATELET COUNT 293 X10'3 (140-440); RED BLOOD COUNT 4.59 X10'6 (4.70-6.10); RED CELL DISTRIBUTION WIDTH 13.4 % (11.5-14.5); WHITE BLOOD COUNT 6.6 X10'3 (4.5-11.0)
[2019-02-18] MEDS: heparin, porcine 5000 units/ml vial SQ SCH ×2 (08:49→19:04)
[2019-02-18 08:50] LABS: ALBUMIN 2.8 G/DL (3.4-5.0); ANION GAP 8 (8-16); BLOOD UREA NITROGEN 19 MG/DL (7-18); BUN/CREATININE RATIO 24.7 (5.4-32.0); CALCIUM 8.7 MG/DL (8.5-10.1); CHLORIDE 103 MMOL/L (99-107); CREATININE 0.77 MG/DL (0.60-1.10); GLUCOSE 125 MG/DL (70-104); MAGNESIUM 1.7 MG/DL (1.5-2.4); POTASSIUM 3.8 MMOL/L (3.5-5.1); SODIUM 138 MMOL/L (135-145); TOTAL CARBON DIOXIDE 27.5 MMOL/L (24-32); eGFR > 90 ML/MIN
[2019-02-18 10:00] VITALS: BP 118/74
[2019-02-18] MEDS ORDERED: VANCOMYCIN LEVEL IV ONE (11:30)
[2019-02-18 18:00] VITALS: BP 131/69
--- NOTE | 2019-02-18 18:08 | NUR ---
Patient in room ORTHO 4016. I have received report from Minerva BARFIELD and had the opportunity to ask questions and assume patient care.
--- NOTE | 2019-02-18 18:08 | NUR ---
Problems reprioritized. Patient report given, questions answered & plan of care reviewed with emilia briones.
[2019-02-18] MEDS: lactobacillus rhamnosus 10,000 MMU CELLS/CAPSULE PO SCH (19:03)
[2019-02-18 21:47] VITALS: BP 130/84
[2019-02-19] MEDS: HYDROcodone/acetaminophen 10/325mg tab PO PRN ×2 (02:12→09:39)
[2019-02-19 05:00] VITALS: BP 127/78
--- NOTE | 2019-02-19 06:03 | NUR ---
Problems reprioritized. Patient report given, questions answered & plan of care reviewed with Minerva BARFIELD.
[2019-02-19 06:23] LABS: BASOPHILS # (AUTO) 0.1 X10'3 (0-0.2); BASOPHILS % (AUTO) 1.4 % (0-1); EOSINOPHILS # (AUTO) 0.6 X10'3 (0-0.9); EOSINOPHILS % (AUTO) 8.8 % (0-6); HEMATOCRIT 45.7 % (42.0-52.0); HEMOGLOBIN 15.7 g/dl (14.0-17.9); LYMPHOCYTES # (AUTO) 1.4 X10'3 (1.1-4.8); LYMPHOCYTES % (AUTO) 20.1 % (21-51); MEAN CORPUSCULAR HEMOGLOBIN 32.6 PG (27.0-31.0); MEAN CORPUSCULAR HGB CONC 34.3 g/dL (33.0-36.5); MEAN CORPUSCULAR VOLUME 95.2 FL (78-98); MEAN PLATELET VOLUME 8.2 FL (7.4-10.4); MONOCYTES # (AUTO) 0.8 X10'3 (0-0.9); MONOCYTES % (AUTO) 11.9 % (2-12); NEUTROPHILS % (AUTO) 57.8 % (42-75); PLATELET COUNT 291 X10'3 (140-440); RED BLOOD COUNT 4.81 X10'6 (4.70-6.10); RED CELL DISTRIBUTION WIDTH 13.3 % (11.5-14.5); WHITE BLOOD COUNT 6.8 X10'3 (4.5-11.0)
[2019-02-19 06:34] LABS: ALBUMIN 2.8 G/DL (3.4-5.0); ANION GAP 8 (8-16); BLOOD UREA NITROGEN 20 MG/DL (7-18); BUN/CREATININE RATIO 26.3 (5.4-32.0); CALCIUM 8.5 MG/DL (8.5-10.1); CHLORIDE 102 MMOL/L (99-107); CREATININE 0.76 MG/DL (0.60-1.10); GLUCOSE 100 MG/DL (70-104); MAGNESIUM 1.8 MG/DL (1.5-2.4); POTASSIUM 4.1 MMOL/L (3.5-5.1); SODIUM 137 MMOL/L (135-145); TOTAL CARBON DIOXIDE 27.1 MMOL/L (24-32); eGFR > 90 ML/MIN
--- NOTE | 2019-02-19 06:34 | NUR ---
Problems reprioritized. Patient report given, questions answered & plan of care reviewed with emilia briones.
[2019-02-19] MEDS: K and/or MAG REPLACEMENT MC SCH (07:20)
[2019-02-19] MEDS: lactobacillus rhamnosus 10,000 MMU CELLS/CAPSULE PO SCH (07:21)
[2019-02-19] MEDS: heparin, porcine 5000 units/ml vial SQ SCH (07:22)
[2019-02-19 10:00] VITALS: BP 128/81
[2019-02-19] MEDS ORDERED: CEPH250T PO (12:15)
--- NOTE | 2019-02-19 12:46 | NUR ---
Initial: Pt admit w/ L leg cellulitis hx prior meth abuse, CHF, disabled, homeless. PO 100% regular diet meeting healing needs at this time. LBM 02/18. No nutrition concerns at this time. Will continue to monitor. Rec: 1. continue regular diet 2. bowel care as needed 3. wt per rx Addendum: 02/19/19 at [address] Amended: Links added.
--- NOTE | 2019-02-19 15:25 | NUR ---
EDDIE'D PT IN STABLE CONDITION, CALLED IN RX TO [facility]
== END 2019-02-19 15:00 | disposition home or self-care (01) | DRG 720 ==
LOC: ER 14:08 → ED HOLD 22:11 → ORTHO 4S 23:04
PROVIDERS: ADMIT Internal Medicine; ATTEND Internal Medicine
DX: A41.9 Sepsis, unspecified organism (principal); E87.0 Hyperosmolality and hypernatremia; I42.9 Cardiomyopathy, unspecified; B19.20 Unspecified viral hepatitis C without hepatic coma; F17.210 Nicotine dependence, cigarettes, uncomplicated; H54.8 Legal blindness, as defined in USA; F12.90 Cannabis use, unspecified, uncomplicated; I10 Essential (primary) hypertension; G89.29 Other chronic pain; I25.10 Atherosclerotic heart disease of native coronary artery without angina pectoris; L03.116 Cellulitis of left lower limb; Z59.0 Homelessness; Z91.81 History of falling
CPT/HCPCS: 36415; 71045; 80048; 80053; 80202; 81001; 83605; 83735; 84145; 85025; 87040; 87081; 93005; 96360; 97161; 97530; 99285; G0378; J0696; J1644; J3370; J3490; J7030

== ENCOUNTER 2019-03-22 22:06 | Emergency (ER) | payer MEDICAID ==
[~2019-03-22] VITALS: Ht 185.4 cm; Wt 86.4 kg
[~2019-03-22 22:06] MED LIST changes: -ASPI-1071 PO; +CEPH250T PO; -IBUP-1594 PO; -NO HOME MEDS
[2019-03-22 23:02] LABS: BASOPHILS # (AUTO) 0.1 X10'3 (0-0.2); BASOPHILS % (AUTO) 0.6 % (0-1); EOSINOPHILS # (AUTO) 0.2 X10'3 (0-0.9); EOSINOPHILS % (AUTO) 2.1 % (0-6); HEMATOCRIT 39.7 % (42.0-52.0); HEMOGLOBIN 13.2 g/dl (14.0-17.9); LYMPHOCYTES # (AUTO) 2.4 X10'3 (1.1-4.8); LYMPHOCYTES % (AUTO) 23.6 % (21-51); MEAN CORPUSCULAR HEMOGLOBIN 32.1 PG (27.0-31.0); MEAN CORPUSCULAR HGB CONC 33.3 g/dL (33.0-36.5); MEAN CORPUSCULAR VOLUME 96.2 FL (78-98); MEAN PLATELET VOLUME 7.9 FL (7.4-10.4); MONOCYTES # (AUTO) 0.8 X10'3 (0-0.9); MONOCYTES % (AUTO) 7.8 % (2-12); NEUTROPHILS # (AUTO) 6.6 X10'3 (1.8-7.7); NEUTROPHILS % (AUTO) 65.9 % (42-75); PLATELET COUNT 362 X10'3 (140-440); RED BLOOD COUNT 4.13 X10'6 (4.70-6.10); RED CELL DISTRIBUTION WIDTH 13.7 % (11.5-14.5)
[2019-03-22 23:03] LABS: CLARITY,URINE CLEAR (Clear); COLOR,URINE YELLOW (Yellow); GLUCOSE, URINE NEGATIVE (Neg); KETONES,URINE NEGATIVE (Neg); LEUKOCYTE ESTERASE ,URINE NEGATIVE (Neg); NITRITES, URINE NEGATIVE (Neg); OCCULT BLOOD,URINE NEGATIVE (Neg); PROTEIN,URINE NEGATIVE (Neg); UROBILINOGEN,URINE 0.2 E.U/dL (0.2-1.0)
[2019-03-22 23:06] LABS: UA COLLECTION TYPE NON-SPECIFIED
[2019-03-22 23:16] LABS: PARTIAL THROMBOPLASTIN TIME 27 SECONDS (22-32)
[2019-03-22 23:17] LABS: URINE AMPHETAMINE SCREEN NEGATIVE (Neg); URINE BARBITUATE SCREEN NEGATIVE (Neg); URINE BENZODIAZEPINES SCREEN NEGATIVE (Neg); URINE CANNABINOID SCREEN POSITIVE (Neg); URINE COCAINE SCREEN NEGATIVE (Neg); URINE METHADONE SCREEN NEGATIVE (Neg); URINE OPIATE SCREEN NEGATIVE (Neg); URINE PHENCYCLIDINE SCREEN NEGATIVE (Neg)
[2019-03-22 23:21] LABS: ANION GAP 7 (8-16); BILIRUBIN,TOTAL 0.2 MG/DL (0.1-1.0); BLOOD UREA NITROGEN 9 MG/DL (7-18); BUN/CREATININE RATIO 10.8 (5.4-32.0); CALCIUM 7.6 MG/DL (8.5-10.1); CHLORIDE 106 MMOL/L (99-107); CREATININE 0.83 MG/DL (0.60-1.10); GLUCOSE 114 MG/DL (70-104); POTASSIUM 3.3 MMOL/L (3.5-5.1); SODIUM 142 MMOL/L (135-145); TOTAL CARBON DIOXIDE 29.3 MMOL/L (24-32); TOTAL PROTEIN 6.8 G/DL (6.4-8.2); eGFR > 90 ML/MIN
[2019-03-22 23:22] LABS: ALANINE AMINOTRANSFERASE 25 U/L (12-78); ALBUMIN/GLOBULIN RATIO 0.8 (1.1-1.5); ALKALINE PHOSPHATASE 59 IU/L (46-116); ASPARTATE AMINO TRANSFERASE 21 U/L (10-37); ETHANOL 0.299 GM/DL (0.0-0.010)
--- NOTE | 2019-03-23 02:15 | NUR ---
PATIENT PULLED IV OUT AND THREW IT ON THE FLOOR. AWARE
--- NOTE | 2019-03-23 07:31 | NUR ---
pt. is sleeping and is no distress.
[2019-03-23] MEDS ORDERED: thiamine 100mg tablet PO ONE (07:40)
[2019-03-23] MEDS ORDERED: normal saline 1000ML IV soln IVB ONE (07:40)
[2019-03-23] MEDS ORDERED: magnesium oxide 400mg tablet PO ONE (07:40)
[2019-03-23] MEDS ORDERED: phenobarbital inj 260 MG in normal saline 100ml IV soln 100 ML IV ONE (07:40)
[2019-03-23] MEDS ORDERED: normal saline 1000ml 1,000 ML IV ONE ×2 (10:10)
[2019-03-23] MEDS ORDERED: ondansetron/PF 4mg/2ml inj IV ONE (12:15)
[2019-03-23 12:26] VITALS: BP 133/81
== END 2019-03-23 12:33 | disposition home or self-care (01) ==
LOC: ER 22:06
DX: F10.920 Alcohol use, unspecified with intoxication, uncomplicated (principal); E87.6 Hypokalemia; R11.2 Nausea with vomiting, unspecified; I25.10 Atherosclerotic heart disease of native coronary artery without angina pectoris; I10 Essential (primary) hypertension; G89.29 Other chronic pain; R40.4 Transient alteration of awareness; F12.90 Cannabis use, unspecified, uncomplicated; Z98.890 Other specified postprocedural states; Z59.0 Homelessness; Y90.9 Presence of alcohol in blood, level not specified
CPT/HCPCS: 36415; 70450; 71045; 80053; 80305; 80320; 81003; 85025; 85610; 85730; 93005; 96361; 96365; 96366; 96375; 99284; J2405; J2560; J7030